=== PATIENT | female | born 2000 | race Caucasian/White ===

== ENCOUNTER 2021-03-26 23:04 | Emergency (ER) | payer OTHER ==
[~2021-03-26] VITALS: Ht 157.5 cm; Wt 68.8 kg
[2021-03-26] MEDS ORDERED: QUET100T2 (23:16)
[2021-03-26] MEDS ORDERED: ARIP1TAB6 (23:16)
[2021-03-27 02:25] LABS: BASO % 0.4 % (0.0-1.0); EOS # 0.1 10^3/uL (0.0-0.5); EOS % 0.6 % (0.0-3.0); HEMATOCRIT 39.8 % (36.0-47.0); HEMOGLOBIN 13.2 g/dl (12.0-15.5); LYMPH # 2.8 10^3/uL (1.5-5.0); LYMPH % 36.2 % (24.0-44.0); MEAN CORPUSCULAR HEMOGLOBIN 30.1 pg (27.0-33.0); MEAN CORPUSCULAR HGB CONC 33.2 g/dl (32.0-36.5); MEAN CORPUSCULAR VOLUME 90.9 fl (80.0-96.0); MONO # 0.4 10^3/uL (0.0-0.8); MONO % 4.8 % (2.0-8.0); NEUTROPHILS # 4.5 10^3/uL (1.5-8.5); NEUTROPHILS % 57.6 % (36.0-66.0); PLATELET COUNT, AUTOMATED 223 10^3/uL (150-450); RED BLOOD COUNT 4.38 10^6/uL (4.00-5.40); WHITE BLOOD COUNT 7.9 10^3/uL (4.0-10.0)
[2021-03-27 02:43] LABS: BLOOD UREA NITROGEN 15 MG/DL (7-18); CALCIUM LEVEL 9.4 MG/DL (8.5-10.1); CARBON DIOXIDE LEVEL 27 MEQ/L (21-32); CHLORIDE LEVEL 106 MEQ/L (98-107); CREATININE FOR GFR 0.58 MG/DL (0.55-1.30); GLUCOSE, FASTING 89 MG/DL (70-100); SODIUM LEVEL 138 MEQ/L (136-145)
[2021-03-27 02:58] LABS: HCG, SERUM QUALITATIVE NEGATIVE (NEGATIVE)
--- NOTE | 2021-03-27 05:13 | REPVR ---
PROCEDURE INFORMATION: Exam: CT Head Without Contrast Exam date and time: 03/27/2021 3:39 AM Age: 20 years old Clinical indication: Pain; Headache not specified; Additional info: Headache HTN TECHNIQUE: Imaging protocol: Computed tomography of the head without contrast. Radiation optimization: All CT scans at this facility use at least one of these dose optimization techniques: automated exposure control; mA and/or kV adjustment per patient size (includes targeted exams where dose is matched to clinical indication); or iterative reconstruction. COMPARISON: No relevant prior studies available. FINDINGS: Brain: No hemorrhage. Unremarkable white matter. No mass effect. Cerebral ventricles: The lateral and 3rd ventricles are slightly enlarged. Paranasal sinuses: Visualized sinuses are unremarkable. No fluid levels. Mastoid air cells: Visualized mastoid air cells are well aerated. Bones/joints: No acute fracture. Soft tissues: Unremarkable. IMPRESSION: 1. Mild ventriculomegaly, a nonspecific finding. 2. No parenchymal hemorrhage, mass or midline shift. 3. A follow-up MRI or CSF assessment should be considered if clinically indicated. Electronically signed by: Carlos Sheppard On 03/27/2021 05:12:56 AM
--- NOTE | 2021-03-27 05:14 | REPVR ---
PROCEDURE INFORMATION: Exam: XR Chest Exam date and time: 03/27/2021 4:09 AM Age: 20 years old Clinical indication: Shortness of breath; Additional info: SOB TECHNIQUE: Imaging protocol: XR of the chest. Views: 2 views. COMPARISON: No relevant prior studies available. FINDINGS: Lungs: No consolidation. Pleural spaces: No pleural effusion. No pneumothorax. Heart/Mediastinum: No cardiomegaly. Bones/joints: Unremarkable. IMPRESSION: No acute findings. Electronically signed by: Carlos Sheppard On 03/27/2021 05:13:41 AM
[2021-03-27 05:30] VITALS: BP 101/59
--- NOTE | 2021-03-27 05:49 | ECGEPIP ---
[facility] - ED Test Date: 2021-03-27 Pat Name: RAFAEL DANGELO Department: Room: - Gender: Female [employer]: : 2000 Requested By: DELMA Noel Order Number: [id number] Reading MD: Rizwan Ledesma Measurements Intervals [place] Rate: 88 P: -11 WA: 120 QRS: 56 QRSD: 88 T: 29 QT: 348 QTc: 421 Interpretive Statements Normal sinus rhythm POOR R WAVE PROGRESSION NO PRIORS FOR COMPARISON Electronically Signed on 03-27-2021 5:49:24 EDT by Rizwan Ledesma
== END 2021-03-27 05:48 | disposition home or self-care (01) ==
LOC: M ED 23:04
DX: G93.89 Other specified disorders of brain (principal); F31.9 Bipolar disorder, unspecified